=== PATIENT | female | born 1990 | race Caucasian/White ===

== ENCOUNTER → 2016-10-24 | Outpatient (CLI) | payer BC ==
--- NOTE | 2016-10-25 08:38 | XR ---
EXAMINATION TYPE: XR elbow complete RT DATE OF EXAM: 10/24/2016 3:32 PM COMPARISON: NONE HISTORY: Pain FINDINGS: Three views of the elbow demonstrate pathologic joint effusion. On the AP view there is a suggestion of a cortical step-off involving the head of the radius. Remaining osseous structures appear intact. IMPRESSION: 1. Hologic joint effusion findings suspicious for radial head fracture. Orally clinically.
== END | disposition home or self-care (01) ==
LOC: RADXRYALE 15:12
PROVIDERS: ATTEND Physician Assistant Medical
DX: M25.421 Effusion, right elbow (principal); M25.521 Pain in right elbow; S59.901A Unspecified injury of right elbow, initial encounter